=== PATIENT | male | born 1940 | race Caucasian/White ===

== ENCOUNTER 2017-11-09 10:08 | Outpatient (CLI) | payer MEDICARE, OTHER ==
--- NOTE | 2017-11-09 13:21 | ULT ---
RENAL ULTRASOUND: History: Chronic kidney disease. Comparison: None. Technique: Sagittal and transverse imaging of the kidneys performed. FINDINGS: Right kidney: No cortical masses. There is no hydronephrosis. Right kidney measures 9.8 x 5.3 x 7.0 c m. Left kidney: Hypoechoic focus from the lower pole left kidney measuring 1.4 x 1.4 x 1.1 cm, incomplet scott evaluated. Echogenic focus in the lower pole left kidney represents a 1.5 cm nonobstructing calcu cortez. No hydronephrosis. Left kidney measures 10.4 x 5.6 x 4.2 cm. There appears to be a calculus in the dependent portion of the urinary bladder measuring 2 cm. Bladde r mucosa is unremarkable. Pre void volume is 229 cubic cm. IMPRESSION: 1. Indeterminate lesion left kidney. Renal mass protocol CT is recommended. 2. Possible nonobstructing calcification in the left renal cortex. 3. Bladder calculus. POS: [facility]
== END 2017-11-09 10:09 | disposition home or self-care (01) ==
LOC: ULT 10:08
PROVIDERS: ATTEND Internal Medicine Nephrology
DX: N18.3 Chronic kidney disease, stage 3 (moderate) (principal); N21.0 Calculus in bladder; N28.89 Other specified disorders of kidney and ureter
CPT/HCPCS: 76770

== ENCOUNTER 2018-04-05 10:33 | Outpatient (CLI) | payer MEDICARE, OTHER ==
--- NOTE | 2018-04-05 13:15 | ULT ---
RENAL SONOGRAM: 04/05/2018 HISTORY: Left renal mass. Follow-up evaluation. COMPARISON: 11/09/2017 FINDINGS: The right kidney again demonstrates a normal sonographic appearance without evidence of renal mass, r enal calculus, or hydronephrosis. The right kidney measures 9.9 cm x 4.5 cm. The left kidney measures 10.9 cm x 5.4 cm. A 1.7 cm hypoechoic cystic lesion is again seen in the mi d portion of the left kidney. However, this does measure slightly larger in size on today's examinat ion, previously measuring 1.4 cm in maximal dimensions. Also, now seen posterior to this mass is a s hadowing echogenic focus, which may represent an adjacent calcification. This area of increased echo genicity measures 2 cm in maximal dimensions. There is no hydronephrosis seen involving the left kid osman. There is a shadowing echogenic focus at the right lateral aspect of the urinary bladder, related to a urinary bladder calculus, also seen on the prior study. IMPRESSION: 1. Indeterminate hypoechoic, cystic appearing lesion, mid portion left kidney, with a closely adjace nt prominent echogenic structure, which demonstrates shadowing, likely related to prominent calcifica tion. This was not appreciated on the prior exam, and the cystic lesion in the left kidney appears s lightly larger in size. Further evaluation with CT scan abdomen with and without intravenous contras t is recommended, depending on the patient's renal function. If the patient does have renal insuffic iency, MRI abdomen without intravenous contrast may be beneficial for further evaluation. 2. Normal appearance of the right kidney. There is no evidence for hydronephrosis bilaterally. 3. Large calculus within the urinary bladder also seen on prior exam. This calculus measures approx imately 2.4 cm. POS: [facility]
== END 2018-04-05 10:34 | disposition home or self-care (01) ==
LOC: ULT 10:33
PROVIDERS: ATTEND Internal Medicine Nephrology
DX: N28.89 Other specified disorders of kidney and ureter (principal); N21.0 Calculus in bladder; R93.422 Abnormal radiologic findings on diagnostic imaging of left kidney
CPT/HCPCS: 76770

== ENCOUNTER 2018-10-19 09:50 | Outpatient (CLI) | payer MEDICARE, BC ==
--- NOTE | 2018-10-19 12:07 | ULT ---
STANDARD BILATERAL RENAL ULTRASOUND: HISTORY: Renal cyst. COMPARISON: Ultrasound from 04/05/2018. TECHNIQUE: Real-time benitez-scale and color evaluation of the kidneys and urinary bladder was performed. FINDINGS: The right kidney measures 9.2 x 4.4 x 5.2 cm. The left kidney measures 10.4 x 5.4 x 5 cm. There is a slight interval size decrease in the left renal cyst, now measuring up to 1.3 cm in size. There is an area of scarring at the inferior pole left kidney. A large calculus is present within th e urinary bladder. Post void urinary volume is 175 mL. IMPRESSION: 1. Slight interval size decrease of the left renal cyst. 2. Urinary bladder calculus. 3. No evidence of obstructive uropathy. POS: [facility]
== END 2018-10-19 09:51 | disposition home or self-care (01) ==
LOC: ULT 09:50
PROVIDERS: ATTEND Internal Medicine Nephrology
DX: N28.1 Cyst of kidney, acquired (principal); N21.0 Calculus in bladder
CPT/HCPCS: 76770

== ENCOUNTER 2019-02-08 12:48 | Outpatient (CLI) | payer MEDICARE, BC ==
--- NOTE | 2019-02-08 13:41 | RAD ---
RADIOGRAPH CHEST 2 VIEWS: Date: 02/08/2019. Time: 1:00 p.m. HISTORY: A 78-year-old male with dyspnea. COMPARISON: 05/17/2017. FINDINGS: There are diffuse centrilobular emphysematous changes. There are interstitial densities at the perip shelia of the bilateral mid and lower lung zones. These are probably unchanged since the previous stud y. No consolidation, pleural effusion, cardiomegaly, hilar enlargement, or mediastinal widening. No pneumothorax. No interval change overall. IMPRESSION: 1. Chronic changes, including centrilobular emphysema and peripheral pulmonary fibrotic changes. 2. No interval change since 05/17/2017. 3. No acute findings. REG [] POS: [facility]
== END 2019-02-08 12:49 | disposition home or self-care (01) ==
LOC: RAD 12:48
PROVIDERS: ATTEND Internal Medicine Pulmonary Disease
DX: R06.00 Dyspnea, unspecified (principal); J43.2 Centrilobular emphysema
CPT/HCPCS: 71046

== ENCOUNTER 2019-08-10 12:45 | Outpatient (CLI) | payer MEDICARE, BC ==
--- NOTE | 2019-08-10 12:59 | RAD ---
XR Chest Pa Lat @ [facility] HISTORY: Dyspnea COMPARISON: 02/08/2019 study. FINDINGS: Heart size is within normal limits. There are atherosclerotic changes of the aorta. Chronic lung changes are seen with chronic interstitial changes in the right base stable the bones appear demineralized. IMPRESSION: Chronic lung change. Stable chest.
== END 2019-08-10 12:46 | disposition home or self-care (01) ==
LOC: RAD 12:45
PROVIDERS: ATTEND Internal Medicine Pulmonary Disease
DX: R06.00 Dyspnea, unspecified (principal)
CPT/HCPCS: 71046